=== PATIENT | female | born 1980 | race Caucasian/White ===

== ENCOUNTER 2017-02-08 15:15 | Emergency (ER) | payer BC ==
[2017-02-08 15:29] VITALS: BP 115/91
--- NOTE | 2017-02-08 17:44 | ED Physician Documentation ---
General Adult - HISTORIAN Historian: patient - HPI Stated Complaint: insect bite Chief Complaint: General Adult Onset: days ago Timing: worse Further Comments: yes (37 year old female presents with insect bite and redness to left medial calf. Patient states she sqeezed out pus and has applied prid today. Reports redness spreading signficantly since yesterday.) - ROS CONST: no problems EYES/ENT: none CVS/RESP: none GI/: none MS/SKIN/LYMPH: none NEURO/PSYCH: denies: headache - PAST HX Past History: none Surgeries/Procedures: BTL Allergies/Adverse Reactions: Allergies Allergy/AdvReac Type Severity Reaction Status Date / Time No Known Allergies Allergy Verified 02/08/17 15:25 Home Medications: Ambulatory Orders Medication Instructions Recorded Sulfamethoxazole/Trimethoprim 1 each PO BID #20 tab 02/08/17 [Bactrim Ds] - SOCIAL HX Smoking History: non-smoker - FAMILY HX Family History: No - VITAL SIGNS Vital Signs: Vital Signs Temp Pulse Resp BP Pulse Ox 98.7 F 84 16 115/91 99 02/08/17 15:34 02/08/17 15:34 02/08/17 15:34 02/08/17 15:34 02/08/17 15:34 - REVIEWED ASSESSMENTS Nursing Assessment Reviewed: Yes Vitals Reviewed: Yes Progress - Progress Progress: Area marked with skin marker. 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 Will place on bactrim. General Adult Physical Exam - PHYSICAL EXAM GENERAL APPEARANCE: mild distress RESPIRATORY: no resp distress CVS: reg rate & rhythm SKIN: warm/dry, normal color, other (left medial calf with 6cm area of erythema , 1 cm dark red center; no drainage. ) NEURO: oriented X3, motor nml, sensation nml, cognition normal Discharge Clincal Impression: Cellulitis of leg Qualifiers: Laterality: left Qualified Code(s): L03.116 - Cellulitis of left lower limb Prescriptions: Sulfamethoxazole/Trimethoprim [Bactrim Ds] 1 each PO BID #20 tab Home Medications: Ambulatory Orders Sulfamethoxazole/Trimethoprim [Bactrim Ds] 1 each PO BID #20 tab 02/08/17 Condition: Stable Disposition: 01 HOME, SELF-CARE Decision to Admit: NO Decision Time: 15:25
== END 2017-02-08 15:34 | disposition home or self-care (01) ==
LOC: ED 15:15
DX: L03.116 Cellulitis of left lower limb (principal)
CPT/HCPCS: 99283